=== PATIENT | female | born 2000 | race Caucasian/White ===

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

== ENCOUNTER 2025-10-09 14:12 | Inpatient (IN) ==
[2025-10-09] MEDS ORDERED: OXYTOCIN 30 UNITS/NSS 30 UNITS/500 ML BAG IV PRN ×3 (15:00→17:13)
[2025-10-09] MEDS ORDERED: CALCIUM CARBONATE 500 MG CHEWABLE TAB PO PRN (15:00)
[2025-10-09] MEDS ORDERED: ACETAMINOPHEN 325 MG TAB PO PRN ×2 (15:00→17:13)
[2025-10-09] MEDS: LACTATED RINGER'S 1,000 ML IV PRN (15:00)
[2025-10-09] MEDS ORDERED: LIDOCAINE 1% LOCAL 20 ML VIAL INFIL PRN (15:00)
--- NOTE | 2025-10-09 15:05 | History & Physical Report ---
Date of Service October 09, 2025 Assessment & Plan (1) with 38 completed weeks gestation: Plan: admit in labor History of Present Illness Chief Complaint: patient in labor Primary Care Provider: Taylor Tenorio MD 25 F [id number] at 40.0 weeks at term in active labor. GBS is positive. Allergies Allergy/AdvReac Type Severity Reaction Status Date / Time latex Allergy Unknown Rash Verified 09/17/25 19:06 Home Medications Medication Instructions Recorded Confirmed Type albuterol sulfate 90 mcg/actuation 2 puff inhalation Q4 PRN Wheezing 02/05/19 09/17/25 History aerosol inhaler (ProAir HFA) loratadine 10 mg tablet 10 mg PO DAILY 02/05/19 09/17/25 History ferrous sulfate 325 mg (65 mg 325 mg PO QAM #30 tabs 02/07/19 09/17/25 Rx iron) tablet,delayed release vits no.124-ferrous fum 1 tab PO QAM #60 tabs 02/07/19 09/17/25 Rx 27 mg iron-folic acid 800 mcg tablet ( Vitamin) hydroxyzine HCl 50 mg tablet 50 mg PO DIRECTED 09/17/25 History Patient History Medical History ADHD Marijuana use Patient has a medical card Major depressive disorder Depression with anxiety Iron deficiency anemia Asthma Albuterol PRN inhaler Surgical History Hx of tonsillectomy [place] teeth extracted Social History Smoking Status: Former smoker Tobacco Type: E-cigarettes / Vaping Cigarettes Per Day: 4; Second Hand Exposure: No; Do You Dip or Chew Tobacco: No; Hx Alcohol Use: No Hx Substance Use: Yes Prescribed Medications: Marijuana Last Used Substance: Days (ago) Last Used Substance Other:: Yesterday Preferred Language: [place]an Communication Ability: Effective Lockstitch Coat 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 Required: No Beliefs That Will Affect Care: None marital status: Single Current Living Situation: Alone Current Living Situation Comment: patient has own apartment Feels Safe at Home: Yes Assistive Devices: None 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 Review of Systems All systems reviewed & are unremarkable except as noted in HPI & below Physical Exam Constitutional: WD/WN, vitals as above Eyes: PERRL, conjunctivae normal, anicteric sclerae Respiratory: normal respiratory effort Cardiovascular: Rate/Rhythm: regular rate and regular rhythm Gastrointestinal (Abdomen): Inspection/Auscultation: abdomen normal to inspection Musculoskeletal: Extremities: extremities normal to inspection Skin: no rashes, warm and dry Neurologic: patellar DTR's 2+ bilat, sensation intact Psychiatric: A+Ox3, euthymic affect Genitourinary: Manual OB Exam: + cervical dilation 7 cm and 8 cm, + cervical effacement 100% and + station + 1 OB Exam Monitor Tracing: + external FHT monitor used, + external uterine monitor used, + category I and + normal FHT variability Results & Data Vital Signs (Past 12 Hours) Vital Signs Pulse BP 10/09/25 14:48 64 109/62 Code Status & VTE Plan VTE Prophylaxis Plan VTE Prophylaxis will be ordered: No
[2025-10-09 15:18] LABS: Hematocrit (blood only) 35.9 % (37.0-47.0); Hemoglobin 11.4 g/dL (12.0-16.0); Mean Corpuscular Hemoglobin 26.1 pg (25.0-34.0); Mean Corpuscular Volume 82.3 fL (80.0-100.0); Platelet Count 185 K/uL (130-400); RDW Standard Deviation 58.2 fL (36.4-46.3); Red Blood Count 4.36 M/uL (4.20-5.40); White Blood Count 12.64 K/ul (4.8-10.8)
--- NOTE | 2025-10-09 15:22 | Anesthesiology Consultation ---
Date of Service October 09, 2025 Assessment & Plan (1) Encounter for pre-operative examination: Chart Review Chart Review: Acceptable Risk for Labor Epidural History Height/Weight Height: 5 ft 3 in Weight: 79.379 kg Allergies Allergy/AdvReac Type Severity Reaction Status Date / Time latex Allergy Unknown Rash Verified 09/17/25 19:06 Medications Home Medications Medication Instructions Recorded Confirmed Last Taken albuterol sulfate 90 mcg/actuation 2 puff inhalation Q4 PRN Wheezing 02/05/19 10/09/25 10/04/25 aerosol inhaler (ProAir HFA) ferrous sulfate 325 mg (65 mg 325 mg PO QAM #30 tabs 02/07/19 10/09/25 10/08/25 iron) tablet,delayed release vits no.124-ferrous fum 1 tab PO QAM #60 tabs 02/07/19 10/09/25 10/08/25 27 mg iron-folic acid 800 mcg tablet ( Vitamin) hydroxyzine HCl 50 mg tablet 50 mg PO DIRECTED 09/17/25 10/09/25 10/01/25 Past Medical History Medical History ADHD Marijuana use Patient has a medical card Major depressive disorder Depression with anxiety Iron deficiency anemia Asthma Albuterol PRN inhaler Past Surgical History Surgical History Hx of tonsillectomy [place] teeth extracted Social History Smoking Status: Current every day smoker tobacco type: cigarettes Smoking cigarettes per day: 4 Do You Dip or Chew Tobacco: No Hx Alcohol Use: No Hx Substance Use: Yes substance use type: marijuana Substance Use Type Other:: marijuana Last Used Substance: Hours (ago) Last Used Substance Other:: Yesterday Physical Exam Vital Signs Last Vital Signs Temp 37.0 C 10/09/25 14:56 Pulse 74 10/09/25 15:17 Resp 16 10/09/25 14:56 BP 109/62 10/09/25 14:48 Pulse Ox 99 10/09/25 15:17 Testing Laboratory Results 10/09/25 15:03
[2025-10-09] MEDS: PENICILLIN GK 6 MU in DEXTROSE 5% 250 ML IV STA (15:35)
[2025-10-09] MEDS: BUPIVACAINE 0.25% PF 30 ML VIAL ONE (15:45)
[2025-10-09] MEDS: LIDOCAINE 2%/EPINEPHRINE 1:200,000 20 ML PF ONE (15:45)
[2025-10-09] MEDS: fentANYL 2 MCG/ML BUPIVacaine 0.125%-NSS 100ML BAG ONE (15:46)
[2025-10-09] MEDS ORDERED: ROPIVACAINE 0.5% PF 5 MG/ML 20 ML VIAL EPI PRN (15:50)
[2025-10-09] MEDS ORDERED: NALOXONE HCL 0.4 MG/1 ML VIAL/CARP IV PRN (15:50)
[2025-10-09] MEDS ORDERED: BUPIVACAINE 0.25% PF 30 ML VIAL EPI PRN (15:50)
[2025-10-09] MEDS ORDERED: LIDOCAINE 2% MPF LOCAL 5 ML VIAL EPI PRN (15:50)
[2025-10-09] MEDS ORDERED: ONDANSETRON INJ 2 MG/ML 2 ML VIAL IV PRN (15:50)
[2025-10-09] MEDS ORDERED: NALOXONE HCL 1 MG in SODIUM CHLORIDE 0.9% 1,000 ML IV PRN (15:50)
[2025-10-09] MEDS ORDERED: SODIUM CHLORIDE 0.9% PF INJ 10 ML VIAL EPI PRN (15:50)
[2025-10-09] MEDS ORDERED: fentANYL 2 MCG/ML BUPIVacaine 0.125%-NSS 100ML BAG EPI PRN (15:50)
[2025-10-09 16:27] LABS: Amphetamines+Metham, Urine Neg (Neg); MDMA (Ecstacy), Urine Neg (Neg); Marijuana, Urine Pos (Neg)
--- NOTE | 2025-10-09 16:32 | Labor Progress Brief Note ---
Date of Service October 09, 2025 Assessment & Plan Admission and Anticipated Discharge Date Admission Date: October 09, 2025 Physical Exam Genitourinary: Manual OB Exam: + cervical dilation 8 cm, + cervical effacement 100%, + station + 1 and + amniotic fluid (AROM with Amni-hook clear fluid) clear OB Exam Monitor Tracing: + external FHT monitor used, + external uterine monitor used, + category I and + normal FHT variability Will start Oxytocin to augment contractions EFW 7.5 lbs. Results & Data Vital Signs (Past 12 Hours) Vital Signs Temp Pulse Resp BP Pulse Ox 10/09/25 16:28 70 86 L 10/09/25 16:27 63 100 10/09/25 16:24 63 114/56 L 10/09/25 16:22 62 100 10/09/25 16:20 64 131/59 L 10/09/25 16:17 65 100 10/09/25 16:14 67 102/56 L 10/09/25 16:12 70 100 10/09/25 16:09 74 101/61 10/09/25 16:07 100 10/09/25 16:07 72 10/09/25 16:07 72 85 L 10/09/25 16:04 75 98/59 L 10/09/25 16:02 69 100 10/09/25 16:00 16 10/09/25 16:00 16 10/09/25 15:59 77 100/60 10/09/25 15:57 67 100 10/09/25 15:55 74 95/59 L 10/09/25 15:54 76 85/51 L 10/09/25 15:52 71 16 100 10/09/25 15:50 16 10/09/25 15:50 16 10/09/25 15:48 75 16 100/58 L 10/09/25 15:47 74 99 10/09/25 15:46 67 16 109/64 10/09/25 15:45 64 105/59 L 10/09/25 15:44 16 10/09/25 15:44 16 10/09/25 15:42 100 10/09/25 15:42 68 10/09/25 15:42 76 117/54 L 10/09/25 15:37 80 99 10/09/25 15:32 85 100 10/09/25 15:31 86 86 L 10/09/25 15:27 82 98 10/09/25 15:25 77 89 L 10/09/25 15:22 76 99 10/09/25 15:17 74 99 10/09/25 15:12 74 100 10/09/25 15:08 88 94 10/09/25 15:07 70 100 10/09/25 15:02 64 100 10/09/25 14:56 37.0 C 16 10/09/25 14:48 64 109/62
[2025-10-09] MEDS ORDERED: HYDROCORTISONE ACETATE 25 MG SUPP PR PRN (17:13)
[2025-10-09] MEDS ORDERED: ALBUTEROL HFA 8 GM INHALER INH PRN (17:13)
--- NOTE | 2025-10-09 17:16 | Delivery Summary ---
Vaginal Delivery Summary Date of Service October 09, 2025 Vaginal Delivery Summary live male HANSA with nuchal cord x1 reduced at delivery with delayed cord clamping. Apgars 8/9 weight pending. Cord blood obtained followed by spontaneous delivery of intact placenta. No tears. QBL 50 ml. Final sponge and instrument count are correct. Mom and baby stable.
--- NOTE | 2025-10-09 18:06 | Anesthesia Procedure Note ---
Date of Service October 09, 2025 Anesthesia Post Epidural Note Vital Signs Vital Signs: Temp Pulse Resp BP Pulse Ox 37.0 C 60 16 116/54 L 85 L 10/09/25 14:56 10/09/25 17:35 10/09/25 17:45 10/09/25 17:35 10/09/25 17:13 Pain Intensity Lower Abdomen: Pain Intensity: 10 Notes Mental Status: alert / awake / arousable and participated in evaluation Nausea / Vomiting: adequately controlled Pain: adequately controlled Airway Patency, RR, SpO2: stable & adequate BP & HR: stable & adequate Hydration State: stable & adequate Neuraxial Anesthesia: was administered and sensory block is resolving Anesthetic Complications: no major complications apparent Epidural: Removed without complications and With tip intact
[2025-10-09] MEDS ORDERED: PENICILLIN GK 3 MU in DEXTROSE 5% 100 ML IV PRN (19:00)
[2025-10-09] MEDS: BENZOCAINE 20% SPRY 85 APPLN/85 GM CAN EXT PRN (19:09)
[2025-10-09] MEDS: IBUPROFEN 600 MG TAB PO PRN (19:09)
[2025-10-09] MEDS: SODIUM CHLORIDE 0.9% PF INJ 10 ML VIAL ONE (22:01)
[2025-10-09] MEDS: DIPHTHER/TETAN/PERTUS Vaccine (Tdap, Adol/Adult) 0.5mL IM ONE (22:01)
[2025-10-09] MEDS: BUPIVACAINE 0.25% PF 30 ML VIAL EPI STA (22:02)
[2025-10-09] MEDS: LIDOCAINE 2%/EPINEPHRINE 1:200,000 20 ML PF EPI STA (22:02)
[2025-10-09] MEDS: DOCUSATE SODIUM 100 MG CAP PO SCH (22:02)
[2025-10-09] MEDS: SODIUM CHLORIDE 0.9% PF INJ 10 ML VIAL EPI STA (22:02)
[2025-10-10 06:37] LABS: Hematocrit (blood only) 31.0 % (37.0-47.0); Hemoglobin 10.0 g/dL (12.0-16.0); Mean Corpuscular Hemoglobin 26.5 pg (25.0-34.0); Mean Corpuscular Volume 82.0 fL (80.0-100.0); Platelet Count 163 K/uL (130-400); RDW Standard Deviation 59.6 fL (36.4-46.3); Red Blood Count 3.78 M/uL (4.20-5.40); White Blood Count 10.76 K/ul (4.8-10.8)
[2025-10-10 08:36] VITALS: RESP 16
[2025-10-10] MEDS ORDERED: FERROUS SULFATE 325 MG TAB PO SCH (09:00)
[2025-10-10] MEDS ORDERED: PRENATAL VITAMIN 1 TAB PO SCH (09:00)
[2025-10-10] MEDS: FERROUS SULFATE 325 MG TAB PO SCH (09:23)
[2025-10-10] MEDS: PRENATAL VITAMIN 1 TAB PO SCH (09:23)
--- NOTE | 2025-10-10 11:52 | Obstetrical Progress Note ---
Date of Service October 10, 2025 Assessment & Plan (1) Normal course: Post day 1 Vaginal delivery Pt doing well No complaints Stable vitals Stable labs. H/H: 09/14 Tolerating PO food and med Hx of PPD and psych diso- Psych consult placed Pt also has social service needs-Social Service consult placed Results & Data Vital Signs (Past 12 Hours) Vital Signs Temp Pulse Resp BP Pulse Ox O2 Del Method 10/10/25 08:00 36.7 C 67 16 107/67 99 Room Air 10/10/25 00:10 36.8 C 73 17 104/70 97 Room Air
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
--- NOTE | 2025-10-10 18:13 | Progress Note ---
Date of Service October 10, 2025 Assessment & Plan (1) Psychosocial stressors: Plan: pt seen and evaluated by [facility] health No meds recommended Pt given recommendation and support materials and f/u plans Pt wishes to be discharged home Admission and Anticipated Discharge Date Admission Date: October 09, 2025 Results & Data Vital Signs (Past 12 Hours) Vital Signs Temp Pulse Resp BP Pulse Ox O2 Del Method 10/10/25 11:45 36.4 C L 88 16 118/76 99 Room Air 10/10/25 08:00 36.7 C 67 16 107/67 99 Room Air
[2025-10-11 08:07] LABS: Hematocrit (blood only) 35.4 % (37.0-47.0); Hemoglobin 11.3 g/dL (12.0-16.0)
--- NOTE | 2025-10-11 08:42 | Obstetrical Progress Note ---
Date of Service October 11, 2025 Assessment & Plan Admission and Anticipated Discharge Date Admission Date: October 09, 2025 Subjective abdomen soft and non tender no calf tenderness ambulating well vaginal bleeding scant [id number] Results & Data Vital Signs (Past 12 Hours) Vital Signs Temp Pulse Resp BP Pulse Ox O2 Del Method 10/11/25 00:30 36.5 C 75 16 127/71 98 Room Air
[2025-10-11 10:28] VITALS: BP 100/66; PULSE 72; TEMP 99; O2SAT 99
== END 2025-10-11 14:50 | disposition home or self-care (01) | DRG 807 ==
LOC: OPB 14:12 → 4S1 14:15 → 4E2 19:57